=== PATIENT | female | born 1960 | race Caucasian/White ===

== ENCOUNTER → 2021-01-08 | Outpatient (REF) | payer BC ==
[2021-01-08 10:49] LABS: PLATELET COUNT, AUTOMATED 396 10^3/uL (150-450)
[2021-01-08 10:52] LABS: COLLAGEN EPINEPHRINE 114 SECONDS (74-162)
[2021-01-08 11:02] LABS: INR 0.99; PROTHROMBIN TIME 13.2 SECONDS (12.5-14.3)
[2021-01-08 11:03] LABS: PARTIAL THROMBOPLASTIN TIME 30.3 SECONDS (24.2-38.5)
== END ==
LOC: M PLALAB 10:25
PROVIDERS: ATTEND Physician Assistant
DX: M47.22 Other spondylosis with radiculopathy, cervical region (principal)

== ENCOUNTER → 2021-05-13 | Outpatient (CLI) | payer BC ==
[~2021-05-13] MED LIST: CITA20TA7; FLUTISP; GABA-1171; GLYB2.5T7; LOSA25TA14; METF500T13; ONDA4TAB6; PANT40TA29; PREG50CA2; SIMV20TA22
== END ==
LOC: M LABSMTC 10:32
PROVIDERS: ATTEND Anesthesiology
DX: Z01.812 Encounter for preprocedural laboratory examination (principal); Z11.52 Encounter for screening for COVID-19

== ENCOUNTER 2021-05-18 08:45 | Day surgery (SDC) | payer BC ==
[~2021-05-18] VITALS: Ht 177.8 cm; Wt 138.1 kg
[~2021-05-18 08:45] MED LIST changes: +LIDOCAINE 2% 100MG/5ML SDV (FOR ANES.) As Ordered ONE; +LOSA25TA13; -LOSA25TA14; +NS 1,000 ML IV ONE; +propofoL 200 MG/20 ML VIAL As Ordered ONE
[2021-05-18] MEDS ORDERED: propofoL 500 MG/50 ML VIAL As Ordered ONE (09:37)
[2021-05-18] MEDS ORDERED: fentaNYL 100 MCG/2 ML INJECTION (J3010) As Ordered ONE (09:51)
[2021-05-18] MEDS ORDERED: ePHEDrine SULFATE 25 MG/5 ML(5MG/ML) SYRINGE As Ordered ONE (10:52)
[2021-05-18 11:25] VITALS: BP 137/67
== END 2021-05-18 11:32 | disposition home or self-care (01) ==
LOC: M OPP 08:45
PROVIDERS: ATTEND Internal Medicine Gastroenterology
DX: D12.6 Benign neoplasm of colon, unspecified (principal); K64.0 First degree hemorrhoids; R19.7 Diarrhea, unspecified; R10.9 Unspecified abdominal pain; K44.9 Diaphragmatic hernia without obstruction or gangrene; R12 Heartburn; R93.3 Abnormal findings on diagnostic imaging of other parts of digestive tract; E11.9 Type 2 diabetes mellitus without complications; Z79.84 Long term (current) use of oral hypoglycemic drugs; Z79.899 Other long term (current) drug therapy; Z87.891 Personal history of nicotine dependence
CPT/HCPCS: 43239; 43249; 45385; 88305; J3010

== ENCOUNTER → 2022-11-18 | Outpatient (CLI) | payer OTHER ==
[~2022-11-18] MED LIST changes: -LIDOCAINE 2% 100MG/5ML SDV (FOR ANES.) As Ordered ONE; -NS 1,000 ML IV ONE; -propofoL 200 MG/20 ML VIAL As Ordered ONE
== END ==
LOC: M RAD 15:07
DX: M67.814 Other specified disorders of tendon, left shoulder (principal); M19.012 Primary osteoarthritis, left shoulder; M47.813 Spondylosis without myelopathy or radiculopathy, cervicothoracic region; M54.12 Radiculopathy, cervical region; G89.29 Other chronic pain